=== PATIENT | male | born 1945 | race Caucasian/White ===

== ENCOUNTER 2016-08-09 08:32 | Emergency (ER) | payer OTHER ==
[2016-08-09 08:46] VITALS: RESP 18; TEMP 96.6
[2016-08-09] MEDS ORDERED: NORMAL SALINE 10 ML SYRINGE FLUSH IVP PRN (08:46)
[2016-08-09 09:09] LABS: BASOPHILS # (AUTO) 0.04 10*3/UL; BASOPHILS % (AUTO) 0.6 % (0-1); EOSINOPHILS % (AUTO) 1.5 % (0-8); HEMATOCRIT 44.9 % (42.0-52.0); HEMOGLOBIN 14.9 g/dL (14.0-18.0); IMM GRAN % (AUTO) 0.2 % (0-5); IMM GRAN# (AUTO) 0.01 10*3/UL; LYMPHOCYTES # (AUTO) 1.79 10*3/uL; LYMPHOCYTES % (AUTO) 27.2 % (10-50); MEAN CORPUSCULAR HEMOGLOBIN 29.4 PG (27-31); MEAN CORPUSCULAR HGB CONC 33.2 g/dL (33-37); MEAN PLATELET VOLUME 10.2 FL (7.4-12.2); MONOCYTES # (AUTO) 0.58 10*3/UL (0.3-0.8); MONOCYTES % (AUTO) 8.8 % (5-15); NEUTROPHILS # (AUTO) 4.05 10*3/UL; NEUTROPHILS % (AUTO) 61.7 % (50-80); RDW COEFFICIENT OF VARIATION 14.3 % (11.5-14.5); RED BLOOD COUNT 5.07 10^6/uL (4.70-6.10); WHITE BLOOD COUNT 6.57 10^3/uL (4.8-10.8)
[2016-08-09 09:10] LABS: PLATELET MORPHOLOGY COMMENT NORMAL MORPHOLOGY (NORM)
[2016-08-09 09:20] LABS: PROTHROMBIN TIME 10.1 secs (9.7-11.4)
[2016-08-09 09:21] LABS: BILIRUBIN,TOTAL 0.6 mg/dL (0.3-1.2); BUN/CREATININE RATIO 21.81 (6-20); CALCIUM 9.3 mg/dL (8.7-10.7); CREATININE 1.1 mg/dL (0.70-1.50); POTASSIUM 4.3 meq/L (3.8-5.2); TOTAL PROTEIN 7.1 g/dL (6.1-8.0)
--- NOTE | 2016-08-09 09:29 | PDOC ---
GI Bleed/Rectal Complaint HPI - General Chief Complaint: GI Bleed / Rectal Pain Stated Complaint: GI BLEEDING THIS AM Date Seen by Provider: 08/09/16 Time Seen by Provider: 09:00 Source: POSITIVE: Patient Exam Limitations: POSITIVE: No limitations Nurse's Notes Reviewed & Considered: Yes - History of Present Illness Initial Comments: The patient is a 71-year-old male who presents to the emergency department with blood in his stool this morning. He states that intermittently in the past he has had a small amount of bright red blood in the stool or on the tissue when he wipes. This morning he states that there was a significant amount of blood in the toilet and on the stool when he had a bowel movement. He denies any associated abdominal pain, rectal pain, fevers or chills, lightheadedness or any other associated complaints. He does take one baby aspirin daily however denies any use of any other blood thinners. He is not on any prescription medications. He has not had any previous abdominal surgeries. He has not had any previous colonoscopy. He has been told in the past that he has some hemorrhoids. He states that his stool varies from hard to loose depending on his diet and activity etc. the patient was evaluated briefly by Dr. Lauren on the patient's arrival and he had ordered a CBC CMP and coag studies. - Patient Home Medications Home Medications: Home Medications Aspirin [Lo-Dose Aspirin Ec] 81 mg PO DAILY tab 11/20/13 Fluorouracil 0.5 gm TP BID #1 tube 05/19/14 - Patient Allergies Allergies/Adverse Reactions: Allergies Allergy/AdvReac Type Severity Reaction Status Date / Time No Known Allergies Allergy Verified 08/09/16 08:39 Past Medical History - heen HEENT History: Denies History Cardiovascular History: Denies History Respiratory History: Denies History Gastrointestinal History: Other (please comment) Additional Gastrointestinal History: gastric ulcer Genitourinary History: Kidney Stones Endocrine History: Denies History Musculoskeletal History: Denies History Neurological History: Denies History Blood Disorders: Denies History Psychiatric History: Denies History Male Reproductive History: Other (please comment) Additional Male Reproductive History: vasectomy Cancer History: Denies History In Past Year Been Physically Harmed or Verbally Threatened: No History of MDRO: No Tobacco Use: Never Smoker Alcohol Use: None Substance Use Type: None Previous Surgical History: Yes Type / Date of Surgery: vasectomy Significant Family History: No pertinent family hx Past Medical History Reviewed: Reviewed - No Changes ROS - Limitations ROS Limitations: No Limitations Constitution: DENIES: Chills, Fever Cardiovascular: REPORTS: Denies Cardiac Symptoms Respiratory: REPORTS: Denies Resp Symptoms Neurological: REPORTS: Denies Neuro Symptoms GI Bleed / Rectal Complaint PE - General Appearance General Appearance: POSITIVE: Alert, Cooperative, No Acute Distress - HEENT HEENT: POSITIVE: Head Inspection Nml - Respiratory Respiratory: POSITIVE: No Respiratory Distress, Breath Sounds Normal - Cardiovascular Cardiovascular: POSITIVE: Regular Rate and Rhythm, Heart Sounds Normal Peripheral Pulses: Dorsalis-pedis (R): 2+, Dorsalis-pedis (L): 2+ - Abdomen Abdomen: Soft: (All Quadrants), Denies Tenderness: (All Quadrants), No Guarding : (All Quadrants), No Rebound: (All Quadrants), No Palpabale Mass: (All Quadrants), No Distention: (All Quadrants) - Genital / Rectal Rectal: POSITIVE: Non-Tender, Heme Positive Stool, Other (He does have evidence of external hemorrhoids on exam, no obvious source of bleeding although some of the hemorrhoids extend internally). NEGATIVE: Bloody Stool - Skin Skin: POSITIVE: Color Normal, No Rash - Extremities Extremity: Normal ROM: (All Extremities), Normal Inspection: (All Extremities) GI Bleed / Rectal Progress - Results Reviewed by me Lab Results Reviewed: Yes Lab Results:: Laboratory Results 08/09/16 Range/Units 09:00 WBC 6.57 (4.8-10.8) 10^3/uL RBC 5.07 (4.70-6.10) 10^6/uL Hgb 14.9 (14.0-18.0) g/dL Hct 44.9 (42.0-52.0) % MCV 88.6 (80-90) FL MCH 29.4 (27-31) PG MCHC 33.2 (33-37) g/dL RDW Std Deviation 44.9 (39-50) fL RDW Coeff of Angelia 14.3 (11.5-14.5) % Plt Count 189 (140-350) 10*3/uL MPV 10.2 (7.4-12.2) FL Immature Gran % (Auto) 0.2 (0-5) % Neut % (Auto) 61.7 (50-80) % Lymph % (Auto) 27.2 (10-50) % [place] % (Auto) 8.8 (5-15) % Eos % (Auto) 1.5 (0-8) % Baso % (Auto) 0.6 (0-1) % Immature Gran # (Auto) 0.01 10*3/UL Neut # (Auto) 4.05 10*3/UL Lymph # (Auto) 1.79 10*3/uL [place] # (Auto) 0.58 (0.3-0.8) 10*3/UL Eos # (Auto) 0.10 10*3/UL Baso # (Auto) 0.04 10*3/UL WBC Morphology Comment Normal morphology (NORM) Plt Morphology Comment Normal morphology (NORM) RBC Morph Comment Normal morphology (NORM) PT 10.1 (9.7-11.4) secs INR 0.98 (0.00-5.90) N/A APTT Pending Sodium 141 (135-145) meq/L Potassium 4.3 (3.8-5.2) meq/L Chloride 106 (98-112) meq/L Carbon Dioxide 24 (23-33) meq/L Anion Gap 11 (5-20) BUN 24 H (7-22) mg/dL Creatinine 1.1 (0.70-1.50) mg/dL Estimated GFR (>60 ml/min/1.73m(2)) BUN/Creatinine Ratio 21.81 H (6-20) Glucose 131 H (78-110) mg/dL Calculated Osmolality 297.0 H (267-292) mOsm/kg Calcium 9.3 (8.7-10.7) mg/dL Total Bilirubin 0.6 (0.3-1.2) mg/dL AST 26 (21-57) IU/L ALT 37 (21-72) IU/L Alkaline Phosphatase 77 (38-126) IU/L Total Protein 7.1 (6.1-8.0) g/dL Albumin 4.5 (3.5-4.8) g/dL Globulin 2.6 (2.50-4.10) g/dL Albumin/Globulin Ratio 1.70 (1.3-2.0) mg/g - Patient's Progress MDM / ED Course: The patient had no evidence of active bleeding here in the emergency department. His rectal exam does reveal presence of hemorrhoids. Given his history and complaint of bright red blood in the stool it seems most likely that he is having bleeding from an internal hemorrhoid. His blood work is all essentially normal with a normal hemoglobin, normal platelets and coags, normal white count. At this point he is considered stable for continued evaluation as an outpatient. He was advised that he should follow-up with either general surgery or gastroenterology to discuss colonoscopy for definitive evaluation, especially since he has never had any screening colonoscopy. He has an appointment with his primary care provider next week which he was going to keep an he sedated he would discuss this with her. I did recommend he return to the emergency room if he develops increased bleeding, abdominal pain, fever, lightheadedness, any worsening or change in symptoms. - Consult Counseled: POSITIVE: Patient, Family, RE: Lab Results, RE: DX, RE: Need for F/U Patient Care Time - Estimated PCT Patient Care Time (In Minutes): 25 Vital Signs - Recent Vital Signs Vital Signs: Vital Signs (Last 8 hours) Temp Pulse Resp BP Pulse Ox 08/09/16 08:41 96.6 F L 88 18 160/114 95 - VS Reviewed Vital Signs Reviewed: Yes Discharge Clinical Impression: Bleeding hemorrhoid, Rectal bleeding Condition: Stable Patient Instructions Given at Discharge: Hemorrhoids (ED) Additional Instructions: The cause of the bright red blood on the stool and on the tissue paper is most likely a bleeding hemorrhoid. Your blood work is all essentially normal and there is no evidence of anemia or infection. I would recommend follow-up either with general surgery or gastroenterology to discuss colonoscopy for further definitive evaluation. You can keep your appointment with your primary care provider next week to discuss referral. Recommend regular use of fiber to keep the stool soft. Return to the emergency room if significant increase in bleeding, abdominal pain or fever, lightheadedness, any worsening or change in symptoms. Follow Up With: JOSE TURNER [Primary Care Provider] -
== END 2016-08-09 09:42 | disposition home or self-care (01) ==
LOC: ER 08:32
DX: K64.8 Other hemorrhoids (principal); K62.5 Hemorrhage of anus and rectum
CPT/HCPCS: 80053; 82272; 85025; 85610; 85730; 99283

== ENCOUNTER → 2016-08-24 | Outpatient (CLI) | payer OTHER | LOC: MMPC 11:11 | PROVIDERS: ATTEND Nurse Practitioner Family | DX: K92.1 Melena (principal); R03.0 Elevated blood-pressure reading, without diagnosis of hypertension | CPT/HCPCS: G0439; G0463 ==

== ENCOUNTER → 2016-09-13 | Outpatient (CLI) | payer OTHER | LOC: MMPC 09:00 | PROVIDERS: ATTEND Nurse Practitioner Family | DX: R03.0 Elevated blood-pressure reading, without diagnosis of hypertension (principal) | CPT/HCPCS: 99213 ==

== ENCOUNTER → 2016-09-15 | Outpatient (CLI) | payer OTHER | LOC: MMPC 11:11 | PROVIDERS: ATTEND Surgery | DX: K62.5 Hemorrhage of anus and rectum (principal) | CPT/HCPCS: 99202; G0463 ==

== ENCOUNTER 2016-10-10 07:15 | Day surgery (SDC) | payer OTHER ==
[~2016-10-10 07:15] MED LIST: LIDOCAINE W/ SODIUM BICARB 0.5 ML SYR ONE; Lactated Ringers 1,000 ML PRIMARY IV ONE
[2016-10-10 07:36] VITALS: RESP 18
--- NOTE | 2016-10-10 08:50 | GEN.OPNOTE ---
Colonoscopy Procedure Note Surgery Date: 10/10/16 Preoperative Diagnosis: Bright red blood per rectum. Screening colonoscopy. Postoperative Diagnosis: Same. Near obstructing lesion at 40 cm from the anal verge. Polyp at 22 cm. Procedure: Incomplete colonoscopy with multiple biopsies at 40 cm and destruction of colon polyp at 22 cm. Surgeon: Adrian Matos MD Anesthesia Provider: Jessie Mejía CRNA Anesthesia Type: MAC Indications: Patient has never had a screening colonoscopy. He had episode of bright red blood per rectum. He was seen in the emergency room. He is referred for colonoscopy. Findings: Prep : [Very good] Cecum : [Not visualized] Ascending : [Not visualized] Transverse : [Not visualized] Sigmoid : [Near obstructing lesion at 40 cm from the anal verge. Could not advance the scope past the lesion. Multiple biopsies taken. Polyp at 22 cm biopsied and destroyed.] Rectum : [Normal.] Digital Rectal Exam : [Normal with moderate hemorrhoids. Prostate of normal size and consistency.] A lubricated flexible colonoscope was inserted and passed to 40 cm where we ran into a near obstructing lesion. I could only see the edge of the lesion. There was a small hole which I was unable to advance the scope through. Multiple biopsies were taken. Hemostasis was assured. After multiple attempts and being unable to pass the scope we began the withdrawal. There was a small polyp at 22 cm which was biopsied and destroyed. The remainder of the exam was unremarkable and the scope was withdrawn completing the procedure. Patient tolerated the procedure well without complication. He was taken to outpatient surgery in stable condition. I will order a CT scan of his abdomen and pelvis as well as comprehensive lab work. We'll see the patient in the next day or 2 and discuss the biopsy results.
[2016-10-10 09:15] LABS: BASOPHILS # (AUTO) 0.04 10*3/UL; BASOPHILS % (AUTO) 0.8 % (0-1); EOSINOPHILS # (AUTO) 0.08 10*3/UL; EOSINOPHILS % (AUTO) 1.6 % (0-8); HEMATOCRIT 42.4 % (42.0-52.0); HEMOGLOBIN 13.8 g/dL (14.0-18.0); LYMPHOCYTES # (AUTO) 1.23 10*3/uL; MEAN CORPUSCULAR HEMOGLOBIN 28.4 PG (27-31); MEAN CORPUSCULAR HGB CONC 32.5 g/dL (33-37); MEAN PLATELET VOLUME 10.4 FL (7.4-12.2); MONOCYTES # (AUTO) 0.54 10*3/UL (0.3-0.8); MONOCYTES % (AUTO) 10.9 % (5-15); NEUTROPHILS # (AUTO) 3.06 10*3/UL; NEUTROPHILS % (AUTO) 61.9 % (50-80); RED BLOOD COUNT 4.86 10^6/uL (4.70-6.10)
[2016-10-10 09:20] LABS: PLATELET MORPHOLOGY COMMENT NORMAL MORPHOLOGY (NORM); RBC MORPHOLOGY COMMENT NORMAL MORPHOLOGY (NORM); WBC MORPHOLOGY COMMENT NORMAL MORPHOLOGY (NORM)
[2016-10-10 09:29] LABS: CALCIUM 8.9 mg/dL (8.7-10.7)
--- NOTE | 2016-10-10 12:09 | DI ---
CT ABDOMEN SCAN WITH IV CONTRAST, 10/10/2016 8:53 AM : Clinical History: Sigmoid colon mass that prevented completion of the colonoscopy study. Previous Exam: None at this facility. Scans are performed from the lower lung bases through the liver and kidneys with IV contrast. 95 ml o f Isovue 300 was injected IV. Water was used for rectal contrast. The lung bases are clear. The liver has multiple low-density lesions in the right and left lobes. The se range in size between 3-5 mm up to 25 mm in size. The larger lesions in the left and right lobes d o not have water density, but there is one near the tiffanie hepatis that is of water density. The small er lesions are indeterminate as to the density value. These may represent metastatic disease. Liver u ltrasound is recommended. The gallbladder is grossly normal. There is no abnormality of the spleen, p ancreas, and adrenal glands. Both kidneys are normal in size, shape, position and contour. There is n o hydronephrosis or hydroureter. No renal or ureteral calculi are present. There are no abnormal retr ocrural or periaortic nodes. No ascites is present. READIN. The liver is normal in size but has multiple low density lesions and some of the larger lesions a re suspicious for representing metastatic disease. Liver ultrasound is recommended to see a these are solid or cystic in origin. 2. The remainder of the exam is normal. CT PELVIS SCAN WITH IV CONTRAST, 10/10/2016 8:53 AM: Clinical History: See above. Previous Exam: None at this facility. Scans are performed from just superior to the umbilicus to the symphysis pubis with IV contrast. This is the same bolus of contrast used for the CT scans of the abdomen. Scans through the lower abdomen and pelvis show no intra-abdominal masses or abnormal fluid collectio ns. There is no adenopathy. The appendix is normal. The small bowel, terminal ileum, and ileocecal va lve are normal. The ascending colon is completely decompressed and the transverse colon is primarily filled with air. The descending colon is filled with a combination of air and water. There is a redun dant sigmoid colon and near the junction between the descending colon and the proximal sigmoid colon in the left lower quadrant is an enhancing mucosal lesion consistent with the clinical diagnosis of a sigmoid colon mass. This extends for an estimated length of 3-4 cm. There is no periserosal inflamma tory/infiltrative change and there is no adenopathy. There is a small umbilical hernia through which only mesenteric fat has herniated. READIN. There is an enhancing mass in the colon at the junction between the descending and sigmoid colon that is causing a stenosis. The length of the mass is estimated to be between 3-4 cm and there is no periserosal inflammatory/infiltrative change, and there is no adenopathy. 2. The remainder of the exam is normal.
[2016-10-10 14:14] VITALS: TEMP 96.8
== END 2016-10-10 12:55 | disposition home or self-care (01) ==
LOC: SDSC 07:15
PROVIDERS: ATTEND Surgery
DX: K62.5 Hemorrhage of anus and rectum (principal); Z12.11 Encounter for screening for malignant neoplasm of colon; K63.9 Disease of intestine, unspecified; K63.5 Polyp of colon
CPT/HCPCS: 36415; 45380; 45388; 74177; 80053; 82378; 85025; J2704; J7120

== ENCOUNTER → 2016-10-13 | Outpatient (CLI) | payer OTHER | LOC: MMPC 11:11 | PROVIDERS: ATTEND Surgery | DX: C18.7 Malignant neoplasm of sigmoid colon (principal); K76.9 Liver disease, unspecified | CPT/HCPCS: 99213; G0463 ==

== ENCOUNTER 2016-10-19 06:21 | Inpatient (IN) | payer OTHER ==
[~2016-10-19 06:21] MED LIST changes: +ERTAPENEM 1 GM VIAL ONE; +Sodium Chloride 0.9% 100 ML IV ONE
[2016-10-19] MEDS ORDERED: BUPIVACAINE 0.5% W/ EPI - 10 ML VIAL ONE (07:05)
[2016-10-19] MEDS ORDERED: NORMAL SALINE 10 ML SYRINGE FLUSH IVP PRN (07:12)
[2016-10-19] MEDS ORDERED: ONDANSETRON 4 MG/2 ML VIAL IVP PRN ×2 (07:12→11:53)
[2016-10-19] MEDS ORDERED: Ondansetron ODT Tab 8 MG TAB PO PRN (07:12)
[2016-10-19] MEDS ORDERED: fentaNYL Inj 100 MCG/2 ML VIAL IVP PRN (07:12)
[2016-10-19] MEDS ORDERED: ATROPINE SULFATE 0.4 MG/1 ML VIAL IVP PRN (07:12)
[2016-10-19] MEDS ORDERED: Lactated Ringers 1,000 ML PRIMARY IV SCH (07:15)
[2016-10-19] MEDS ORDERED: MIDAZOLAM 5 MG/1 ML ONE (07:34)
[2016-10-19] MEDS ORDERED: fentaNYL Inj 250 MCG/5 ML VIAL ONE (07:34)
[2016-10-19] MEDS ORDERED: KETAMINE 100 MG/1 ML - 5 ML ONE (07:35)
[2016-10-19] MEDS ORDERED: VECURONIUM BROMIDE 10 MG VIAL ONE ×2 (07:35→08:56)
[2016-10-19] MEDS ORDERED: Sodium Chloride 0.9% vial 10 ML ONE (07:39)
[2016-10-19] MEDS ORDERED: Sodium Chloride 0.9% 100 ML IV ONE (08:01)
[2016-10-19] MEDS ORDERED: ePHEDrine Inj 50 MG/ML AMP ONE (08:18)
[2016-10-19] MEDS ORDERED: GLYCOPYRROLATE 0.2 MG/1 ML VIAL ONE ×2 (08:35→09:14)
[2016-10-19] MEDS ORDERED: HYDROmorphone 2 MG/1 ML ONE (09:11)
[2016-10-19] MEDS ORDERED: NEOSTIGMINE 1 MG/1 ML - 10 ML ONE (09:14)
[2016-10-19] MEDS ORDERED: Sodium Chloride 0.9% vial 30 ML ONE (09:44)
[2016-10-19] MEDS ORDERED: BUPivacaine Liposome/PF (Exparel) Inj 20ml vial INFIL ONE (09:45)
[2016-10-19] MEDS ORDERED: Lactated Ringers 3,000 ML PRIMARY IV ONE (10:18)
--- NOTE | 2016-10-19 10:40 | DI ---
XR ABDOMEN (KUB) FLAT JayeshVIEW,10/19/2016 9:52 AM: Clinical History: Missing surgical instruments. Previous Exam: CT abdomen pelvis performed October 10, 2016 Findings: Multiple views of the abdomen and pelvis are obtained demonstrating multiple surgical clips overlying the abdomen. There is a 3.8 cm hyperdense mass with similar density to the skin sol which overlies the upper p zenobia. A few overlying EKG leads are seen. There is a nasogastric tube with the tip near the gastroesophagea l junction. An endotracheal tube is in good position. Impression: 3.8 cm round density overlying the left pelvis. On these images, cannot rule out the possibility of a n intrapelvic foreign body. This could also be an overlying density. Correlate clinically.
--- NOTE | 2016-10-19 10:50 | GEN.OPNOTE ---
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 Postoperative Diagnosis: Same. Procedure: Partial colectomy with primary anastomosis. Wedge biopsy of liver lesion. Surgeon: Adrian Matos MD Family Law Attorney: Gian Gomez MD Anesthesia Provider: Jessie Mejía CRNA Anesthesia Type: General Estimated Blood Loss (mL): 125 Fluids: 200 mL of crystalloid. 1 g of IV Invanz at the start of the procedure. Pathology: Specimens to pathology included the resected sigmoid colon as well as a liver biopsy. Also a small polyp was excised at the proximal transection margin and sent for analysis. Indications: Near obstructing biopsy proven colon cancer with liver abnormalities on CT scan. Findings: Near obstructing sigmoid colon cancer. Small polyp just proximal at the anastomosis. Multiple white plaque-like lesions on the liver. Wedge biopsy taken. No other intra-abdominal pathology identified. Complications: None. Operative Summary: The patient was taken to the operating suite and placed on the operating table in the supine position. He was then placed in low universal stirrups with his arms out on arm boards. Following induction of adequate general anesthetic the abdomen was prepped and draped in a sterile fashion. A surgical timeout was performed. A midline incision was made and carried down through the subcutaneous tissue and fascia with electrocautery. The peritoneum was elevated and incised. An Jordan retractor was placed. I first looked at the liver. There were several nodules palpable in the right lobe and the left lobe. There were several simple cysts as well.. The easiest nodule to get to was a superficial nodule in the left lobe. A 15 blade on a long handle was used to perform a wedge resection of this lesion. There was retrieved and sent for pathologic analysis. The site was cauterized until hemostasis was assured. Appropriate irrigation and suctioning were performed. A lap was placed over the resection site and removed at the end of the procedure. Hemostasis was assured. Abdominal exam revealed no other gross findings. There is a near obstructing lesion in the sigmoid colon. Attention was turned to resection of this lesion. As the patient had liver metastases wide or extensive resection was not indicated. I chose a proximal transection site about 6 inches proximal to the obstructing tumor. The colon was cleared of the paracolonic fat. A pursestring clamp was placed across the bowel proximally. A 3-0 Maxon suture on a Rahat needle was used to perform the pursestring. A [place] clamp was placed distally and the bowel was divided. 6 inches distal to the tumor I cleared the fat off of the bowel. A pursestring clamp was placed on the bowel. A 3-0 Maxon pursestring suture was placed. A clamp was placed on the proximal or tumor side of the bowel and the bowel was divided. The mesocolon was taken down by serially clamping dividing and ligating the vessels with 0 Vicryl sutures. The specimen was removed from the surgical field. The mesentery was reapproximated with running 2-0 Vicryl. We then removed the proximal pursestring clamp and a polyp was seen in the mucosa. This was excised with electrocautery. The proximal and distal bowel was sized to size 31 mm. I chose a Valtrac anastomotic device. This was placed into the distal bowel initially. The pursestring suture was tied. It was then placed into the proximal bowel. The pursestring suture was tied. The device was inspected circumferentially. The bowel was all within the limits of the anastomotic device. The anastomotic device was closed until a snap was felt. This resulted in an excellent anastomosis with circumferential serosal to serosal proximal to distal bowel approximation. A bowel clamp was placed proximal to the anastomotic device. A colonoscope was inserted into the rectum and passed up to the anastomotic device. The bowel was insufflated with air. Saline was placed in the peritoneal cavity and there was no air leak. The air was aspirated and the colonoscope was removed. All personnel changed gowns and gloves. Extensive irrigation was performed. Hemostasis was assured. The bowel was returned to a relative anatomic position and covered with omentum. The midline fascia was closed with running #1 Vicryl. The wound was irrigated and then infiltrated circumferentially with Exparel. The skin was closed with surgical sol followed by a sterile dressing. The count was off by one forcep. Multiple abdominal x-rays were taken. There were no retained foreign bodies in the peritoneal cavity with the exception of the anastomotic device. The patient tolerated the entire procedure well without complication. He was taken to the recovery room in stable condition. All counts were correct except as noted above.
[2016-10-19] MEDS: HYDROmorphone 2 MG/1 ML IVP PRN ×3 (11:05→11:28)
[2016-10-19] MEDS ORDERED: NALOXONE 0.4 MG/1 ML VIAL IVP PRN (11:53)
[2016-10-19] MEDS: D5-LR + 20mEq KCL 1,000 ML PRIMARY IV SCH ×2 (12:36→21:32)
--- NOTE | 2016-10-19 14:42 | PDOC(PROG) ---
Date and Time of Service: 10/19/2016 1 PM Interval History: Patient is status post hemicolectomy with primary anastomosis for sigmoid colon cancer. He also had a liver biopsy. He is awake and alert and conversant. He is comfortable. He has taken a few ice chips. He has not ambulated. He was afebrile and his vital signs are stable. I'm seeing him for postoperative check. Objective : Data - Vital Signs Vital Signs and I&O: Vital Signs - Last Taken Temperature 97.6 F 10/19/16 13:00 Pulse Rate 62 10/19/16 13:00 Respiratory Rate 16 10/19/16 13:00 Blood Pressure 118/65 10/19/16 13:00 Pulse Ox 95 10/19/16 13:00 Intake and Output (24hr x 4 totals) 10/17/16 10/18/16 10/19/16 10/20/16 05:59 05:59 05:59 05:59 Intake Total 3350 Output Total 425 Balance 2925 Objective : Exam - General General Appearance: No Acute Distress, Cooperative - Respiratory Respiratory Exam: Clear to Auscultation - Bilaterally, Breathing Non Labored - Cardiovascular Cardiovascular Exam: RRR, No Murmur - GI/Abdominal GI/Abdominal Exam: Soft Additional GI/Abdominal Exam Details: Incisional tenderness only. - Neurological Neurological Exam: Alert, Oriented x 3 - Psychiatric Psychiatric Exam: Normal Affect, Normal Mood Assessment and Plan - Patient Problems (1) Cancer of sigmoid colon Current Visit: Yes Status: Acute Priority: High Comment: Near obstructing sigmoid colon cancer. Probable liver metastases. Discovered on recent colonoscopy. (2) Status post partial resection of colon Current Visit: Yes Status: Acute Priority: High Diagnosis Date: 10/19/16 Comment: Status post partial colectomy with primary anastomosis. Stable postoperative.
[2016-10-19] MEDS: MORPHINE SULFATE/PF PCA 30 MG/30 ML IV PRN (19:59)
[2016-10-20] MEDS: D5-LR + 20mEq KCL 1,000 ML PRIMARY IV SCH ×3 (05:34→15:22)
[2016-10-20 05:41] LABS: BASOPHILS # (AUTO) 0.02 10*3/UL; BASOPHILS % (AUTO) 0.2 % (0-1); EOSINOPHILS # (AUTO) 0.02 10*3/UL; EOSINOPHILS % (AUTO) 0.2 % (0-8); HEMATOCRIT 41.8 % (42.0-52.0); HEMOGLOBIN 13.3 g/dL (14.0-18.0); LYMPHOCYTES # (AUTO) 1.35 10*3/uL; MEAN CORPUSCULAR HEMOGLOBIN 27.7 PG (27-31); MEAN CORPUSCULAR HGB CONC 31.8 g/dL (33-37); MEAN CORPUSCULAR VOLUME 86.9 FL (80-90); MEAN PLATELET VOLUME 10.5 FL (7.4-12.2); MONOCYTES # (AUTO) 0.87 10*3/UL (0.3-0.8); MONOCYTES % (AUTO) 9.4 % (5-15); NEUTROPHILS # (AUTO) 7.01 10*3/UL; NEUTROPHILS % (AUTO) 75.6 % (50-80); RED BLOOD COUNT 4.81 10^6/uL (4.70-6.10)
[2016-10-20 05:42] LABS: PLATELET MORPHOLOGY COMMENT NORMAL MORPHOLOGY (NORM); RBC MORPHOLOGY COMMENT NORMAL MORPHOLOGY (NORM); WBC MORPHOLOGY COMMENT NORMAL MORPHOLOGY (NORM)
[2016-10-20 05:53] LABS: CALCIUM 7.9 mg/dL (8.7-10.7); SERUM ALBUMIN 3.1 g/dL (3.5-4.8)
[2016-10-20] MEDS ORDERED: Ertapenem Inj 1 GM in Sodium Chloride 0.9% 100 ML IV SCH (08:00)
[2016-10-20] MEDS: MORPHINE SULFATE/PF PCA 30 MG/30 ML IV PRN (08:56)
[2016-10-20] MEDS: Pantoprazole Inj 40 MG in Normal Saline Flush 10 ML IVP SCH (09:07)
[2016-10-20] MEDS: ENOXAPARIN SODIUM 40 MG/0.4 ML SYRINGE SUBCUT SCH (11:08)
--- NOTE | 2016-10-20 11:38 | PDOC(PROG) ---
Subjective Post Op Day: 1 Pain Management: Peripheral CHEMICAL INSPECTOR Brewster Catheter: Yes Flatus: No Diet: NPO (Except ice chips.) Ambulating: Yes Date and Time of Service: 10/20/2016. Patient seen at 9:20 AM. Interval History: Comfortable. Using the CHEMICAL INSPECTOR sporadically. Hurts most when he coughs and moves. Has ambulated. Taking some ice chips. No flatus or bowel movement. No nausea. Overall doing very well. He is in good spirits. We discussed the operative findings this morning. Pathology is pending. Objective : Data - Labs CBC and BMP: 10/20/16 05:15 10/20/16 05:15 Labs - Last 24 Hours: Laboratory Results 10/20/16 Range/Units 05:15 WBC 9.28 (4.8-10.8) 10^3/uL RBC 4.81 (4.70-6.10) 10^6/uL Hgb 13.3 L (14.0-18.0) g/dL Hct 41.8 L (42.0-52.0) % MCV 86.9 (80-90) FL MCH 27.7 (27-31) PG MCHC 31.8 L (33-37) g/dL RDW Std Deviation 46.4 (39-50) fL RDW Coeff of Angelia 14.8 H (11.5-14.5) % Plt Count 168 (140-350) 10*3/uL MPV 10.5 (7.4-12.2) FL Immature Gran % (Auto) 0.1 (0-5) % Neut % (Auto) 75.6 (50-80) % Lymph % (Auto) 14.5 (10-50) % [place] % (Auto) 9.4 (5-15) % Eos % (Auto) 0.2 (0-8) % Baso % (Auto) 0.2 (0-1) % Immature Gran # (Auto) 0.01 10*3/UL Neut # (Auto) 7.01 10*3/UL Lymph # (Auto) 1.35 10*3/uL [place] # (Auto) 0.87 H (0.3-0.8) 10*3/UL Eos # (Auto) 0.02 10*3/UL Baso # (Auto) 0.02 10*3/UL WBC Morphology Comment Normal morphology (NORM) Plt Morphology Comment Normal morphology (NORM) RBC Morph Comment Normal morphology (NORM) Sodium 137 (135-145) meq/L Potassium 4.3 (3.8-5.2) meq/L Chloride 106 (98-112) meq/L Carbon Dioxide 25 (23-33) meq/L Anion Gap 6 (5-20) BUN 11 (7-22) mg/dL Creatinine 1.0 (0.70-1.50) mg/dL Estimated GFR (>60 ml/min/1.73m(2)) BUN/Creatinine Ratio 11.00 (6-20) Glucose 123 H (78-110) mg/dL Calculated Osmolality 283.0 (267-292) mOsm/kg Calcium 7.9 L (8.7-10.7) mg/dL Total Bilirubin 0.7 (0.3-1.2) mg/dL AST 26 (21-57) IU/L ALT 30 (21-72) IU/L Alkaline Phosphatase 66 (38-126) IU/L Total Protein 5.7 L (6.1-8.0) g/dL Albumin 3.1 L (3.5-4.8) g/dL Globulin 2.6 (2.50-4.10) g/dL Albumin/Globulin Ratio 1.10 L (1.3-2.0) mg/g - Vital Signs Vital Signs and I&O: Vital Signs - Last Taken Temperature 99.3 F 10/20/16 07:33 Pulse Rate 74 10/20/16 07:33 Respiratory Rate 18 10/20/16 09:00 Blood Pressure 136/82 10/20/16 07:33 Pulse Ox 92 10/20/16 11:00 Intake and Output (24hr x 4 totals) 10/18/16 10/19/16 10/20/16 10/21/16 05:59 05:59 05:59 05:59 Intake Total 5206 90 Output Total 1775 Balance 3431 90 Objective : Exam - General General Appearance: No Acute Distress, Cooperative - Respiratory Respiratory Exam: Clear to Auscultation - Bilaterally, Breathing Non Labored - Cardiovascular Cardiovascular Exam: RRR, No Murmur - GI/Abdominal GI/Abdominal Exam: Non Distended, Soft, Diminished Bowel Sounds Additional GI/Abdominal Exam Details: Some serosanguineous drainage on the lower dressing. Incisional tenderness on exam. Hypoactive bowel tones. Patient has a protuberant abdomen but is not distended. - Rectal Rectal Exam: Deferred - Neurological Neurological Exam: Alert, Oriented x 3 - Psychiatric Psychiatric Exam: Normal Affect, Normal Mood Assessment and Plan - Patient Problems (1) Cancer of sigmoid colon Current Visit: Yes Status: Acute Priority: High Comment: status post sigmoid colectomy and liver biopsy. Patient is stable. (2) Status post partial resection of colon Current Visit: Yes Status: Acute Priority: High Diagnosis Date: 10/19/16 Comment: Doing very well. Postoperative course is unremarkable. Patient needs to ambulate. We'll slowly start him on clear liquids. Plan Brewster out later today. We'll start Lovenox. Continue postoperative care. Discussed with the patient and the nursing staff.
[2016-10-21] MEDS: D5-LR + 20mEq KCL 1,000 ML PRIMARY IV SCH ×6 (00:34→13:46)
[2016-10-21 05:53] LABS: BASOPHILS # (AUTO) 0.02 10*3/UL; BASOPHILS % (AUTO) 0.2 % (0-1); EOSINOPHILS # (AUTO) 0.05 10*3/UL; EOSINOPHILS % (AUTO) 0.6 % (0-8); HEMATOCRIT 42.1 % (42.0-52.0); HEMOGLOBIN 13.4 g/dL (14.0-18.0); LYMPHOCYTES # (AUTO) 1.04 10*3/uL; MEAN CORPUSCULAR HEMOGLOBIN 28.1 PG (27-31); MEAN CORPUSCULAR HGB CONC 31.8 g/dL (33-37); MEAN CORPUSCULAR VOLUME 88.3 FL (80-90); MEAN PLATELET VOLUME 10.7 FL (7.4-12.2); MONOCYTES # (AUTO) 0.86 10*3/UL (0.3-0.8); MONOCYTES % (AUTO) 9.8 % (5-15); NEUTROPHILS # (AUTO) 6.78 10*3/UL; NEUTROPHILS % (AUTO) 77.3 % (50-80); RED BLOOD COUNT 4.77 10^6/uL (4.70-6.10)
[2016-10-21 05:58] LABS: PLATELET MORPHOLOGY COMMENT NORMAL MORPHOLOGY (NORM); RBC MORPHOLOGY COMMENT NORMAL MORPHOLOGY (NORM); WBC MORPHOLOGY COMMENT NORMAL MORPHOLOGY (NORM)
[2016-10-21 06:05] LABS: CALCIUM 8.4 mg/dL (8.7-10.7)
[2016-10-21] MEDS: Pantoprazole Inj 40 MG in Normal Saline Flush 10 ML IVP SCH (08:45)
[2016-10-21] MEDS: ENOXAPARIN SODIUM 40 MG/0.4 ML SYRINGE SUBCUT SCH (08:46)
--- NOTE | 2016-10-21 12:56 | PDOC(PROG) ---
Subjective Post Op Day: 2 Pain Management: Peripheral MANAGER OF ORGANIZATIONAL DEVELOPMENT Brewster Catheter: No Flatus: No Diet: Clear Ambulating: Yes Date and Time of Service: 10/21/2016 12:50 PM Interval History: Taking some ice chips. Doesn't really like any of the clear liquids. Has ambulated. He is voiding since the catheter has been removed. No flatus or bowel movement. Patient reports it only hurts when he starts to get up or coughs or sneezes. Objective : Data - Labs CBC and BMP: 10/21/16 05:16 10/21/16 05:16 Labs - Last 24 Hours: Laboratory Results 10/21/16 Range/Units 05:16 WBC 8.77 (4.8-10.8) 10^3/uL RBC 4.77 (4.70-6.10) 10^6/uL Hgb 13.4 L (14.0-18.0) g/dL Hct 42.1 (42.0-52.0) % MCV 88.3 (80-90) FL MCH 28.1 (27-31) PG MCHC 31.8 L (33-37) g/dL RDW Std Deviation 46.9 (39-50) fL RDW Coeff of Angelia 14.8 H (11.5-14.5) % Plt Count 149 (140-350) 10*3/uL MPV 10.7 (7.4-12.2) FL Immature Gran % (Auto) 0.2 (0-5) % Neut % (Auto) 77.3 (50-80) % Lymph % (Auto) 11.9 (10-50) % [place] % (Auto) 9.8 (5-15) % Eos % (Auto) 0.6 (0-8) % Baso % (Auto) 0.2 (0-1) % Immature Gran # (Auto) 0.02 10*3/UL Neut # (Auto) 6.78 10*3/UL Lymph # (Auto) 1.04 10*3/uL [place] # (Auto) 0.86 H (0.3-0.8) 10*3/UL Eos # (Auto) 0.05 10*3/UL Baso # (Auto) 0.02 10*3/UL WBC Morphology Comment Normal morphology (NORM) Plt Morphology Comment Normal morphology (NORM) RBC Morph Comment Normal morphology (NORM) Sodium 136 (135-145) meq/L Potassium 4.3 (3.8-5.2) meq/L Chloride 103 (98-112) meq/L Carbon Dioxide 26 (23-33) meq/L Anion Gap 7 (5-20) BUN 10 (7-22) mg/dL Creatinine 1.0 (0.70-1.50) mg/dL Estimated GFR (>60 ml/min/1.73m(2)) BUN/Creatinine Ratio 10.00 (6-20) Glucose 121 H (78-110) mg/dL Calculated Osmolality 281.0 (267-292) mOsm/kg Calcium 8.4 L (8.7-10.7) mg/dL - Vital Signs Vital Signs and I&O: Vital Signs - Last Taken Temperature 99.5 F 10/21/16 08:21 Pulse Rate 78 10/21/16 08:21 Respiratory Rate 20 10/21/16 11:00 Blood Pressure 148/91 10/21/16 08:21 Pulse Ox 92 10/21/16 11:00 Intake and Output (24hr x 4 totals) 10/19/16 10/20/16 10/21/16 10/22/16 05:59 05:59 05:59 05:59 Intake Total 5206 3109 240 Output Total 1775 1375 300 Balance 3431 1734 -60 Objective : Exam - General General Appearance: No Acute Distress, Cooperative - Respiratory Respiratory Exam: Clear to Auscultation - Bilaterally, Breathing Non Labored - Cardiovascular Cardiovascular Exam: RRR, No Murmur - GI/Abdominal GI/Abdominal Exam: Non Distended, Soft, Diminished Bowel Sounds Additional GI/Abdominal Exam Details: Dressing is clean. No sign of infection. Some dried blood on the dressing. Diffuse mild abdominal tenderness. No peritoneal signs. Assessment and Plan - Patient Problems (1) Cancer of sigmoid colon Current Visit: Yes Status: Acute Priority: High Comment: Status post sigmoid colectomy. (2) Status post partial resection of colon Current Visit: Yes Status: Acute Priority: High Diagnosis Date: 10/19/16 Comment: Stable. Continue postoperative care. Await return of GI function. The pathologist was called. The tumor is full thickness. There are 4 positive lymph nodes. The liver biopsies consistent with metastatic adenocarcinoma. Patient and his are aware.
--- NOTE | 2016-10-21 13:08 | CRNA.PROGR ---
Anesthesia Note Anesthesia Progress Note: Up in a chair. O2 by nasal cannula, still connected to MSO4 COST ACCOUNTING CLERK. Urinary catheter out yesterday. Using incentive spirometry well; 1500 ml times 3. Has been walking well,meaning around the nurses station several times. No flatus passed yet. Encouraged more ambulation. Laboratory Results 10/21/16 Range/Units 05:16 WBC 8.77 (4.8-10.8) 10^3/uL RBC 4.77 (4.70-6.10) 10^6/uL Hgb 13.4 L (14.0-18.0) g/dL Hct 42.1 (42.0-52.0) % MCV 88.3 (80-90) FL MCH 28.1 (27-31) PG MCHC 31.8 L (33-37) g/dL RDW Std Deviation 46.9 (39-50) fL RDW Coeff of Angelia 14.8 H (11.5-14.5) % Plt Count 149 (140-350) 10*3/uL MPV 10.7 (7.4-12.2) FL Immature Gran % (Auto) 0.2 (0-5) % Neut % (Auto) 77.3 (50-80) % Lymph % (Auto) 11.9 (10-50) % [place] % (Auto) 9.8 (5-15) % Eos % (Auto) 0.6 (0-8) % Baso % (Auto) 0.2 (0-1) % Immature Gran # (Auto) 0.02 10*3/UL Neut # (Auto) 6.78 10*3/UL Lymph # (Auto) 1.04 10*3/uL [place] # (Auto) 0.86 H (0.3-0.8) 10*3/UL Eos # (Auto) 0.05 10*3/UL Baso # (Auto) 0.02 10*3/UL WBC Morphology Comment Normal morphology (NORM) Plt Morphology Comment Normal morphology (NORM) RBC Morph Comment Normal morphology (NORM) Sodium 136 (135-145) meq/L Potassium 4.3 (3.8-5.2) meq/L Chloride 103 (98-112) meq/L Carbon Dioxide 26 (23-33) meq/L Anion Gap 7 (5-20) BUN 10 (7-22) mg/dL Creatinine 1.0 (0.70-1.50) mg/dL Estimated GFR (>60 ml/min/1.73m(2)) BUN/Creatinine Ratio 10.00 (6-20) Glucose 121 H (78-110) mg/dL Calculated Osmolality 281.0 (267-292) mOsm/kg Calcium 8.4 L (8.7-10.7) mg/dL Jessie Mejía MS,ASSOCIATE MEDIA PLANNER
[2016-10-21] MEDS: MORPHINE SULFATE/PF PCA 30 MG/30 ML IV PRN (15:43)
[2016-10-22] MEDS: HYDROcodone-APAP 7.5 MG-325 MG TABLET PO PRN ×3 (00:02→20:08)
[2016-10-22] MEDS: Pantoprazole Inj 40 MG in Normal Saline Flush 10 ML IVP SCH (08:35)
[2016-10-22] MEDS: ENOXAPARIN SODIUM 40 MG/0.4 ML SYRINGE SUBCUT SCH (08:36)
[2016-10-22] MEDS: D5-LR + 20mEq KCL 1,000 ML PRIMARY IV SCH (10:00)
--- NOTE | 2016-10-22 14:11 | PDOC(PROG) ---
Subjective Post Op Day: 3 Brewster Catheter: No Flatus: No Diet: Clear Ambulating: Yes Date and Time of Service: 10/22/2016, 2 PM Interval History: No nausea. Tolerating clear liquids. No flatus or bowel movement. Thinks he would like to try more to eat. Patient is ambulating. He is voiding with the Brewster catheter out. His pain is well controlled. He has no specific complaints. Objective : Data - Labs CBC and BMP: 10/21/16 05:16 10/21/16 05:16 - Vital Signs Vital Signs and I&O: Vital Signs - Last Taken Temperature 97.4 F 10/22/16 12:39 Pulse Rate 56 L 10/22/16 12:39 Respiratory Rate 18 10/22/16 13:00 Blood Pressure 118/83 10/22/16 12:39 Pulse Ox 95 10/22/16 12:39 Intake and Output (24hr x 4 totals) 10/20/16 10/21/16 10/22/16 10/23/16 05:59 05:59 05:59 05:59 Intake Total 5206 3109 2929 480 Output Total 1775 1375 900 100 Balance 3431 1734 2029 380 Objective : Exam - General General Appearance: No Acute Distress, Cooperative - Respiratory Respiratory Exam: Clear to Auscultation - Bilaterally, Breathing Non Labored - Cardiovascular Cardiovascular Exam: RRR, No Murmur - GI/Abdominal GI/Abdominal Exam: Non Distended, Soft, Diminished Bowel Sounds Additional GI/Abdominal Exam Details: Incision looks good. Mild erythema. Small amount of dried blood on the lower portion of the incision. No other drainage. No fluctuance. Mild incisional tenderness as expected. Otherwise the abdominal examination is benign. - Neurological Neurological Exam: Oriented x 3 - Psychiatric Psychiatric Exam: Normal Affect, Normal Mood Assessment and Plan - Patient Problems (1) Cancer of sigmoid colon Current Visit: Yes Status: Acute Priority: High Comment: Status post colectomy. (2) Status post partial resection of colon Current Visit: Yes Status: Acute Priority: High Diagnosis Date: 10/19/16 Comment: stable postoperatively. Doing well. Advance diet. Change to oral medications. Discontinue BURLAP ROLL COVERER and IV fluids. We'll need to keep a close eye on the wound. Certainly I would not explore it today but if the erythema increases may need to have a few of the sol removed. Continue postoperative care.
[2016-10-23] MEDS: HYDROcodone-APAP 7.5 MG-325 MG TABLET PO PRN (05:03)
[2016-10-23 06:08] LABS: BASOPHILS # (AUTO) 0.02 10*3/UL; BASOPHILS % (AUTO) 0.3 % (0-1); EOSINOPHILS # (AUTO) 0.13 10*3/UL; EOSINOPHILS % (AUTO) 2.3 % (0-8); HEMOGLOBIN 13.1 g/dL (14.0-18.0); LYMPHOCYTES # (AUTO) 0.95 10*3/uL; MEAN CORPUSCULAR HEMOGLOBIN 27.5 PG (27-31); MEAN CORPUSCULAR HGB CONC 31.2 g/dL (33-37); MEAN CORPUSCULAR VOLUME 88.1 FL (80-90); MEAN PLATELET VOLUME 10.4 FL (7.4-12.2); MONOCYTES # (AUTO) 0.54 10*3/UL (0.3-0.8); MONOCYTES % (AUTO) 9.4 % (5-15); NEUTROPHILS # (AUTO) 4.12 10*3/UL; NEUTROPHILS % (AUTO) 71.3 % (50-80); RED BLOOD COUNT 4.77 10^6/uL (4.70-6.10)
[2016-10-23 06:15] LABS: PLATELET MORPHOLOGY COMMENT NORMAL MORPHOLOGY (NORM); RBC MORPHOLOGY COMMENT NORMAL MORPHOLOGY (NORM); WBC MORPHOLOGY COMMENT NORMAL MORPHOLOGY (NORM)
[2016-10-23 06:27] LABS: BUN/CREATININE RATIO 16.66 (6-20); CALCIUM 8.5 mg/dL (8.7-10.7); SERUM ALBUMIN 3.3 g/dL (3.5-4.8)
[2016-10-23] MEDS: PANTOPRAZOLE 40 MG TABLET PO SCH (06:40)
[2016-10-23] MEDS: ENOXAPARIN SODIUM 40 MG/0.4 ML SYRINGE SUBCUT SCH (09:02)
--- NOTE | 2016-10-23 13:06 | PDOC(PROG) ---
Subjective Post Op Day: 4 Pain Management: PO Brewster Catheter: No Flatus: No Diet: full liqui Ambulating: Yes Date and Time of Service: 10/23/2016 1 PM Interval History: Overall doing well. No complaints. He is comfortable. Pain is well controlled. He is ambulating frequently. Still no flatus or bowel movement. He is tolerating a full liquid diet. No nausea. He does feel slightly bloated. Feels like he will pass gas at any time. Objective : Data - Labs CBC and BMP: 10/23/16 06:00 10/23/16 06:00 Labs - Last 24 Hours: Laboratory Results 10/23/16 Range/Units 06:00 WBC 5.77 (4.8-10.8) 10^3/uL RBC 4.77 (4.70-6.10) 10^6/uL Hgb 13.1 L (14.0-18.0) g/dL Hct 42.0 (42.0-52.0) % MCV 88.1 (80-90) FL MCH 27.5 (27-31) PG MCHC 31.2 L (33-37) g/dL RDW Std Deviation 45.1 (39-50) fL RDW Coeff of Angelia 14.1 (11.5-14.5) % Plt Count 172 (140-350) 10*3/uL MPV 10.4 (7.4-12.2) FL Immature Gran % (Auto) 0.2 (0-5) % Neut % (Auto) 71.3 (50-80) % Lymph % (Auto) 16.5 (10-50) % [place] % (Auto) 9.4 (5-15) % Eos % (Auto) 2.3 (0-8) % Baso % (Auto) 0.3 (0-1) % Immature Gran # (Auto) 0.01 10*3/UL Neut # (Auto) 4.12 10*3/UL Lymph # (Auto) 0.95 10*3/uL [place] # (Auto) 0.54 (0.3-0.8) 10*3/UL Eos # (Auto) 0.13 10*3/UL Baso # (Auto) 0.02 10*3/UL WBC Morphology Comment Normal morphology (NORM) Plt Morphology Comment Normal morphology (NORM) RBC Morph Comment Normal morphology (NORM) Sodium 138 (135-145) meq/L Potassium 4.0 (3.8-5.2) meq/L Chloride 101 (98-112) meq/L Carbon Dioxide 29 (23-33) meq/L Anion Gap 8 (5-20) BUN 15 (7-22) mg/dL Creatinine 0.9 (0.70-1.50) mg/dL Estimated GFR (>60 ml/min/1.73m(2)) BUN/Creatinine Ratio 16.66 (6-20) Glucose 93 (78-110) mg/dL Calculated Osmolality 286.0 (267-292) mOsm/kg Calcium 8.5 L (8.7-10.7) mg/dL Total Bilirubin 0.7 (0.3-1.2) mg/dL AST 31 (21-57) IU/L ALT 30 (21-72) IU/L Alkaline Phosphatase 63 (38-126) IU/L Total Protein 5.8 L (6.1-8.0) g/dL Albumin 3.3 L (3.5-4.8) g/dL Globulin 2.5 (2.50-4.10) g/dL Albumin/Globulin Ratio 1.30 (1.3-2.0) mg/g - Imaging Imaging Details: Flat and upright abdomen x-rays ordered for this morning. Anastomotic device in place. There is gas throughout the proximal colon. Small amount of gas past the device. Some mildly dilated small bowel. No free air. Consistent with mild ileus. - Vital Signs Vital Signs and I&O: Vital Signs - Last Taken Temperature 97 F 10/23/16 11:01 Pulse Rate 64 10/23/16 11:01 Respiratory Rate 17 10/23/16 11:01 Blood Pressure 116/89 10/23/16 11:01 Pulse Ox 93 10/23/16 11:01 Intake and Output (24hr x 4 totals) 10/21/16 10/22/16 10/23/16 10/24/16 05:59 05:59 05:59 05:59 Intake Total 3109 2929 1360 790 Output Total 1375 822 775 2992 Balance 1734 2432 660 260 Objective : Exam - General General Appearance: No Acute Distress, Cooperative - Respiratory Respiratory Exam: Clear to Auscultation - Bilaterally, Breathing Non Labored - Cardiovascular Cardiovascular Exam: RRR, No Murmur - GI/Abdominal GI/Abdominal Exam: Soft, Diminished Bowel Sounds Additional GI/Abdominal Exam Details: Abdomen is slightly distended but soft. Good bowel tones. No peritoneal signs. Incision still looks a little pink below the umbilicus. I took out 2 sol below his umbilicus and probed the wound with a Q-tip. No pus. Wound was redressed. The remainder of the incision looks fine. - Neurological Neurological Exam: Alert, Oriented x 3 - Psychiatric Psychiatric Exam: Normal Affect, Normal Mood Assessment and Plan - Patient Problems (1) Cancer of sigmoid colon Current Visit: Yes Status: Acute Priority: High Comment: Status post sigmoid colectomy. (2) Status post partial resection of colon Current Visit: Yes Status: Acute Priority: High Diagnosis Date: 10/19/16 Comment: Stable. Slow return of GI function. No wound infection. X-ray okay but consistent with a mild ileus. Start Reglan. Continue postoperative care. Gentle diuresis for positive I and O's and weight gain.
--- NOTE | 2016-10-23 13:22 | DI ---
HISTORY: Postoperative abdominal distention. COMPARISON: 10/19/2016. TECHNIQUE: Abdominal series, 4 postoperative images. FINDINGS: Median cutaneous staple line evident. There is a routine density overlying the left hemip zenobia, as seen on prior study, of uncertain etiology. No intraperitoneal free gas identified. Air d istends the colon. A few dilated small bowel loops are noted in the epigastric region with air fluid levels. Some air is noted in the colon with paucity of air distally. Limited views of the lung bases are clear. No acute or destructive bony process identified. IMPRESSION: 1. Possible small bowel obstruction versus focal post operative ileus. Recommend continued clinical f ollow up, surgical evaluation and correlation with surgical history. 2. Nonspecific round density overlying left hemipelvis. Correlate with surgical history.
[2016-10-23] MEDS ORDERED: FUROSEMIDE 20 MG TABLET PO ONE (13:23)
[2016-10-23] MEDS: Metoclopramide Inj 10 MG/2 ML VIAL IVP SCH ×2 (14:34→18:41)
[2016-10-23] MEDS: NORMAL SALINE 10 ML SYRINGE FLUSH IVP PRN ×2 (14:34→18:42)
[2016-10-23] MEDS: DOCUSATE 100 MG CAPSULE PO SCH (20:38)
[2016-10-24] MEDS: NORMAL SALINE 10 ML SYRINGE FLUSH IVP PRN ×4 (00:43→19:30)
[2016-10-24] MEDS: Metoclopramide Inj 10 MG/2 ML VIAL IVP SCH ×4 (00:43→19:29)
[2016-10-24] MEDS: PANTOPRAZOLE 40 MG TABLET PO SCH (06:37)
[2016-10-24] MEDS: ENOXAPARIN SODIUM 40 MG/0.4 ML SYRINGE SUBCUT SCH (07:59)
[2016-10-24] MEDS: DOCUSATE 100 MG CAPSULE PO SCH ×2 (07:59→20:35)
--- NOTE | 2016-10-24 10:15 | PDOC(PROG) ---
Subjective Post Op Day: 5 Pain Management: PO Brewster Catheter: No Flatus: Yes Diet: full liqui Ambulating: Yes Date and Time of Service: 10/24/2016. 9 AM. Interval History: Overall better. Did pass a fair amount of gas. Had a small amount of stool. Doesn't feel as bloated. Voided a lot after the dose of Lasix. Ambulating. No nausea or vomiting. Incisional pain only. Objective : Data - Labs CBC and BMP: 10/23/16 06:00 10/23/16 06:00 - Vital Signs Vital Signs and I&O: Vital Signs - Last Taken Temperature 97.6 F 10/24/16 07:56 Pulse Rate 67 10/24/16 07:56 Respiratory Rate 20 10/24/16 07:56 Blood Pressure 128/75 10/24/16 07:56 Pulse Ox 90 10/24/16 07:56 Intake and Output (24hr x 4 totals) 10/22/16 10/23/16 10/24/16 10/25/16 05:59 05:59 05:59 05:59 Intake Total 2929 1360 3070 Output Total 126 198 2139 375 Balance 9 576 -689 -375 Objective : Exam - General General Appearance: No Acute Distress, Cooperative - Respiratory Respiratory Exam: Clear to Auscultation - Bilaterally, Breathing Non Labored - Cardiovascular Cardiovascular Exam: RRR, No Murmur - GI/Abdominal GI/Abdominal Exam: Non Distended, Soft Additional GI/Abdominal Exam Details: Incision looks okay. Erythema decreased. Dressing changed. Incisional tenderness only. Still abnormal bowel tones. - Neurological Neurological Exam: Alert, Oriented x 3 - Psychiatric Psychiatric Exam: Normal Affect, Normal Mood Assessment and Plan - Patient Problems (1) Cancer of sigmoid colon Current Visit: Yes Status: Acute Priority: High Comment: Status post colectomy. (2) Status post partial resection of colon Current Visit: Yes Status: Acute Priority: High Diagnosis Date: 10/19/16 Comment: Stable postop. Mild ileus seems to be resolving. We will increase to a low-residue diet and plan home in the morning if he tolerates that diet.
[2016-10-25] MEDS: Metoclopramide Inj 10 MG/2 ML VIAL IVP SCH ×2 (01:31→07:40)
[2016-10-25] MEDS: NORMAL SALINE 10 ML SYRINGE FLUSH IVP PRN (01:31)
[2016-10-25] MEDS: PANTOPRAZOLE 40 MG TABLET PO SCH (07:40)
[2016-10-25] MEDS: ENOXAPARIN SODIUM 40 MG/0.4 ML SYRINGE SUBCUT SCH (09:13)
[2016-10-25] MEDS: DOCUSATE 100 MG CAPSULE PO SCH (09:13)
[2016-10-25 12:16] VITALS: RESP 18; TEMP 97.6
--- NOTE | 2016-10-25 13:11 | DCSUMMARY ---
Discharge Summary Admit Date: 10/19/16 Discharge Date: 10/25/16 Admitting Diagnosis: sigmoid colon cancer. Discharge Diagnosis: Sigmoid colectomy and liver biopsy. Primary Surgery and Date: 10/19/2016 left colectomy with primary anastomosis and liver biopsy. Hospital Course: Patient underwent hemicolectomy on the . His postoperative course has been unremarkable. I did have a mild ileus but that has resolved. He is tolerating a regular diet. He is passing gas. He is having bowel movements. He is fully ambulatory. His pain is well controlled. He is ready to be discharged home for outpatient follow-up. Exam - Vitals Vital Signs: Vital Signs Temperature 97.6 F Temperature Source Temporal Artery Scan Pulse Rate [Apical] 78 Pulse Rate [Pulse Oximeter 55 Left] Pulse Rate 50 Respiratory Rate [abdomen] 18 Respiratory Rate 18 Blood Pressure [Right Arm] 131/76 Blood Pressure 123/87 Pulse Ox 93 Oxygen Flow Rate [abdomen] 1 Oxygen Flow Rate 1 Oxygen Delivery Method Room Air Height 5 ft 10 in Weight 100.335 kg - General General Appearance: POSITIVE: No Acute Distress, Cooperative - Respiratory Respiratory Exam: POSITIVE: Clear to Auscultation - Bilaterally, Breathing Non Labored - Cardiovascular Cardiovascular Exam: POSITIVE: RRR, No Murmur - GI/Abdominal GI/Abdominal Exam: POSITIVE: Normal Bowel Sounds, Non Distended, Soft Additional GI/Abdominal Exam Details: Incision looks good. No signs of infection. Incisional tenderness only. - Neurological Neurological Exam: POSITIVE: Alert, Oriented x 3 - Psychiatric Psychiatric Exam: POSITIVE: Normal Affect, Normal Mood Data Procedures: 10/19/2016 left hemicolectomy with liver biopsy. Patient Problems - Patient Problem List (1) Cancer of sigmoid colon Current Visit: Yes Status: Acute Priority: High Comment: status post resection. 4 positive lymph nodes and liver metastases. (2) Status post partial resection of colon Current Visit: Yes Status: Acute Diagnosis Date: 10/19/16 Priority: High Comment: Stable postop. Bowel function has returned. Ready to be discharged home for outpatient follow-up.
== END 2016-10-25 13:58 | disposition home or self-care (01) | DRG 330 ==
LOC: OPS 06:21 → MED/SURG 11:13
PROVIDERS: ADMIT Surgery; ATTEND Surgery
PROC: 0FB20ZX Excision of Left Lobe Liver, Open Approach, Diagnostic (ICD-10-PCS; 2016-10-19)
PROC: 0DBN0ZZ Excision of Sigmoid Colon, Open Approach (ICD-10-PCS; principal; 2016-10-19 08:00)
DX: C18.7 Malignant neoplasm of sigmoid colon (principal); C78.7 Secondary malignant neoplasm of liver and intrahepatic bile duct; K91.3 Postprocedural intestinal obstruction
CPT/HCPCS: 36415; 74000; 74020; 80048; 80053; 85025; 94150; 94761; A4216; J1170; J1335; J1650; J2250; J2710; J2765; J3010; J3490; J7050; J7120

== ENCOUNTER → 2016-10-31 | Outpatient (CLI) | payer OTHER | LOC: MMPC 11:11 | PROVIDERS: ATTEND Surgery | DX: C18.7 Malignant neoplasm of sigmoid colon (principal); C78.7 Secondary malignant neoplasm of liver and intrahepatic bile duct ==

== ENCOUNTER → 2016-11-08 | Outpatient (CLI) | payer OTHER | LOC: MMPC 11:11 | PROVIDERS: ATTEND Surgery | DX: C18.6 Malignant neoplasm of descending colon (principal); Z90.49 Acquired absence of other specified parts of digestive tract ==

== ENCOUNTER → 2016-11-22 | Outpatient (CLI) | payer OTHER | LOC: MMPC 11:11 | PROVIDERS: ATTEND Surgery | DX: C18.7 Malignant neoplasm of sigmoid colon (principal) | CPT/HCPCS: 99212; G0463 ==

== ENCOUNTER 2016-11-23 06:58 | Day surgery (SDC) | payer OTHER ==
[~2016-11-23 06:58] MED LIST changes: -ERTAPENEM 1 GM VIAL ONE; -Sodium Chloride 0.9% 100 ML IV ONE; +ceFAZolin Inj 2gm (Premix) 50 ML IV ONE
[2016-11-23] MEDS ORDERED: fentaNYL Inj 100 MCG/2 ML VIAL ONE (07:04)
[2016-11-23] MEDS ORDERED: MIDAZOLAM 5 MG/1 ML ONE (07:04)
[2016-11-23] MEDS ORDERED: HEPARIN 500 UNIT/5 ML SYRINGE FOR CENTRAL LINE IVP ONE (07:18)
[2016-11-23] MEDS ORDERED: LIDOCAINE HCL 1%/EPI 1:100,000 - 20 ML VIAL ONE (07:18)
[2016-11-23] MEDS ORDERED: SODIUM BICARBONATE 8.4% - 50 ML VIAL ONE (07:18)
[2016-11-23] MEDS ORDERED: Sodium Chloride 0.9% 100 ML IV ONE (07:24)
--- NOTE | 2016-11-23 08:59 | GEN.OPNOTE ---
Operative Note Surgery Date: 11/23/16 Preoperative Diagnosis: Stage IV colon cancer. Need for long-term venous access. Postoperative Diagnosis: Same. Procedure: Left subclavian PowerPort placement. Surgeon: Adrian Matos MD Anesthesia Provider: Mike Baca CRNA Anesthesia Type: Local (1% Xylocaine with epinephrine and sodium bicarbonate per Adrian Matos M.D.), MAC Estimated Blood Loss (mL): 3 Fluids: 700 mL of crystalloid. 2 g of IV Ancef at the start of the procedure. Pathology: No specimens. Indications: Need for long-term venous access for chemotherapy. Findings: Fluoroscopy shows a smooth course of the catheter through the subclavian vein and into the superior vena cava. Completion chest x-ray shows the catheter tip in the superior vena cava. No evidence of a pneumothorax. Complications: None. Operative Summary: The patient was taken to the operating suite and placed on the operating table in the supine position. Following the induction of adequate IV sedation the operative site was chosen and infiltrated with 1% Xylocaine with epinephrine and bicarbonate. I chose the left subclavian region. A Cook needle was used to tunnel from the port site up to the subclavian vein. The needle was inserted into the subclavian vein. A guidewire was passed through the vein into the superior vena cava. Its position was confirmed with fluoroscopy. An incision was made on the chest wall. A subcutaneous pocket was developed. A power port was chosen. The catheter was cut to 21 cm. The device was put together in the normal fashion and flushed with heparinized saline. A peel- away sheath and dilator were passed over the guidewire. The guidewire and dilator were removed. The catheter was passed through the peel-away sheath into the superior vena cava. The peel-away sheath was removed. The port was placed into the chest wall pocket. Fluoroscopy confirmed a smooth course of the catheter throughout. The tip was in the superior vena cava. There was no evidence of a pneumothorax. The device was flushed initially with 10 units of heparin per cc flush. Final flush was with 10 mL of 100 units of heparin per cc flush. The deep dermis was closed with inverted interrupted 3-0 Vicryls. The skin was closed with running subcuticular 4-0 Monocryl. This was followed by Mastisol, Steri-Strips, and an OpSite dressing. A sandbag was placed on the operative site. The patient tolerated the procedure well without complication. She was taken to the outpatient surgery in stable condition. All counts were correct. Final chest x-ray shows the catheter tip in the superior vena cava. There is no evidence of a pneumothorax. The catheter may be used for its intended purpose.
[2016-11-23] MEDS ORDERED: HYDROcodone-APAP 5 MG -325 MG TABLET PO PRN (09:03)
--- NOTE | 2016-11-23 09:08 | DI ---
C-ARM FLUOROSCOPY OF THE CHEST, 11/23/2016 8:00 AM : Clinical History: Colon cancer. Insertion of Mediport catheter. Previous Exam: None at this facility. A single spot film is submitted. The shows the Mediport catheter tip in the superior vena cava. The i nsertion is from the left subclavian route. Reading: The Mediport catheter is in the proximal superior vena cava.
--- NOTE | 2016-11-23 09:08 | DI ---
AP CHEST X-RAY, 11/23/2016 9:00 AM : Clinical History: Mediport insertion. The patient has colon cancer and requires chemotherapy. Previous Exam: None at this facility. There is no acute soft tissue or bony abnormality. Heart size is normal. The Mediport was inserted fr om the left subclavian route and the catheter tip is at the junction of the IVC and left brachiocepha lic vein. There is no pneumothorax. No acute infiltrate or effusion is present. Mediastinal structure s are normal. There are no pulmonary nodules. Reading: Normal chest x-ray. There is no pneumothorax. The tip of the Mediport catheter is at the junction of the superior vena cava and left brachiocephalic vein.
[2016-11-23 11:26] VITALS: RESP 16; TEMP 97.1
== END 2016-11-23 09:43 | disposition home or self-care (01) ==
LOC: SDSC 06:58
PROVIDERS: ATTEND Surgery
DX: C18.7 Malignant neoplasm of sigmoid colon (principal)
CPT/HCPCS: 36561; 71010; 76000; J0690; J2704; J3010; J2250; J7050; J7120

== ENCOUNTER 2016-11-29 02:26 | Emergency (ER) | payer OTHER ==
[2016-11-29] MEDS ORDERED: NORMAL SALINE 10 ML SYRINGE FLUSH IVP PRN (03:00)
[2016-11-29] MEDS ORDERED: ASPIRIN 81 MG (BABY) CHEWABLE TABLET PO ONE (03:00)
--- NOTE | 2016-11-29 03:02 | EKG ---
[address] [address] Measurements Intervals [place] Rate: 59 P: 51 ND: 176 QRS: 75 QRSD: 106 T: 60 QT: 408 QTc: 407 Interpretive Statements SINUS BRADYCARDIA No previous ECG available for comparison Electronically Signed On 11-29-16 08:44:28 MDT by David Valdes [email or web address]
[2016-11-29 03:07] LABS: BASOPHILS # (AUTO) 0.01 10*3/UL; BASOPHILS % (AUTO) 0.1 % (0-1); EOSINOPHILS # (AUTO) 0 10*3/UL; EOSINOPHILS % (AUTO) 0 % (0-8); HEMATOCRIT 45.3 % (42.0-52.0); HEMOGLOBIN 14.7 g/dL (14.0-18.0); LYMPHOCYTES # (AUTO) 1.02 10*3/uL; MEAN CORPUSCULAR HEMOGLOBIN 27.2 PG (27-31); MEAN CORPUSCULAR HGB CONC 32.5 g/dL (33-37); MEAN CORPUSCULAR VOLUME 83.9 FL (80-90); MEAN PLATELET VOLUME 10.1 FL (7.4-12.2); MONOCYTES # (AUTO) 0.17 10*3/UL (0.3-0.8); MONOCYTES % (AUTO) 1.3 % (5-15); NEUTROPHILS % (AUTO) 90.7 % (50-80)
[2016-11-29 03:08] LABS: PLATELET MORPHOLOGY COMMENT NORMAL MORPHOLOGY (NORM); RBC MORPHOLOGY COMMENT NORMAL MORPHOLOGY (NORM); WBC MORPHOLOGY COMMENT NORMAL MORPHOLOGY (NORM)
[2016-11-29 03:10] VITALS: RESP 20; TEMP 97.5
[2016-11-29 03:14] LABS: BUN/CREATININE RATIO 21.11 (6-20); CALCIUM 9.4 mg/dL (8.7-10.7); SERUM ALBUMIN 4.1 g/dL (3.5-4.8)
[2016-11-29 03:26] LABS: TROPONIN I < 0.012 ng/mL (< 0.040)
--- NOTE | 2016-11-29 08:18 | DI ---
XR CXR 2VW PA/LAT,11/29/2016 3:01 AM: Clinical History: Chest pain Previous Exam: November 23, 2016 Findings: PA and lateral views of the chest are obtained, and demonstrate clear lungs. The cardiomediastinum is unremarkable. There is a chest port noted within the left anterior chest wall. Skeletal structures are unremarkable. Impression: No acute disease.
--- NOTE | 2016-11-29 08:56 | PDOC ---
Chest Pain HPI - General Chief Complaint: Chest Pain Stated Complaint: CHEST PAIN Date Seen by Provider: 11/29/16 Time Seen by Provider: 02:47 Source: Patient, Spouse Exam Limitations: POSITIVE: No limitations Treatment Prior to Arrival: REPORTS: None Nurse's Notes Reviewed & Considered: Yes - History of Present Illness Initial Comments: The patient is a 71-year-old male. He presents to the emergency room ambulatory with his . He states that around 10 PM, approximately 4-1/2 hours ROOFER he developed a fleeting episode of pain in the subxiphoid area. He states the pain lasted one to 2 seconds. He's had several similar episodes since. On presentation to the emergency room he denies any chest discomfort. Patient had a Port-A-Cath placed on the left recently and today he was started on fluorouracil infusion through the Port-A-Cath for colon cancer. He recently had a resection of his colon cancer on September. Patient has not had any associated dyspnea. Patient states he does have a history of passing a kidney stone. His first round of chemotherapy with fluorouracil began today. Body Location Affected: REPORTS: Chest (As above) Timing: REPORTS: Abrupt, Intermittent, Improved, Other (Pain localizes the area of his sharp pain to the subxiphoid area. He states he's had 3 or 4 episodes since 10 PM, each of which last only one or 2 seconds.) Duration: 4-6 hours Severity: Mild Gone now, lasted (minutes):: 0 Intermittent Episodes Lasting (minutes): 0 Context: REPORTS: Sleep Quality: REPORTS: Sharpness Radiation: REPORTS: None Associated Symptoms: DENIES: Nausea, Vomiting, Diaphoresis, Shortness of Breath , Hurts to Breathe, Palpitations, Productive Cough (blood), Productive Cough ( sputum), Weakness, Dizziness Modifying Factors: improves with: None Reported Similar Symptoms Previously: No Recently seen/treated/hospitalized: Yes (as above) Any Prior Injuries Related to Current Complaint?: No - Patient Home Medications Home Medications: Home Medications Fluorouracil [Adrucil] 5 gm IV WEEKLY 11/29/16 - Patient Allergies Allergies/Adverse Reactions: Allergies Allergy/AdvReac Type Severity Reaction Status Date / Time No Known Allergies Allergy Verified 11/29/16 02:51 Past Medical History - heen HEENT History: Dentures/Partials Cardiovascular History: Denies History Respiratory History: Denies History Gastrointestinal History: Other (please comment) Additional Gastrointestinal History: gastric ulcer. rectal bleeding. colon cancer with mets to liver. colon cancer removal with resection Genitourinary History: Kidney Stones Endocrine History: Denies History Musculoskeletal History: Denies History Prosthesis or Implant: No Neurological History: Denies History Blood Disorders: Denies History Psychiatric History: Denies History History of Sexually Transmitted Diseases: No Cancer History: Colon Cancer Treatment / Date(s) of Treatment: DIAGNOSED ON 10/10/16 WITH COLONOSCOPY In Past Year Been Physically Harmed or Verbally Threatened: No History of MDRO: No History of Other Communicable Diseases: No Tobacco Use: Never Smoker Alcohol Use: None Substance Use Type: None Previous Surgical History: Yes Type / Date of Surgery: WEDGE BIOPSY OF LIVER. PARTIAL COLECTOMY WITH PRIMARY ANASTAMOSIS. COLONOSCOPY. vasectomy. KIDNEY STONE EXTRACTION Anesthesia Reactions: No Malignant Hyperthermia: No Significant Family History: Cancer Past Medical History Reviewed: Reviewed - No Changes ROS - Limitations ROS Limitations: No Limitations Constitution: REPORTS: Denies Symptoms Cardiovascular: REPORTS: Chest Pain Respiratory: REPORTS: Denies Resp Symptoms Neurological: REPORTS: Denies Neuro Symptoms Gastrointestinal: REPORTS: Denies GI Symptoms Endocrine: REPORTS: Denies Symptoms Musculoskeletal: REPORTS: Denies MS Symptoms Genitourinary: REPORTS: Denies Symptoms Eyes: REPORTS: Denies Symptoms ENT: REPORTS: Denies Symptoms Skin: REPORTS: Denies Skin Symptoms Lympathic: REPORTS: Denies Lympathic Symptoms Immunologic: POSITIVE: Denies Symptoms Psychiatric: POSITIVE: Denies Psych Symptoms Chest Pain PE - General Appearance General Appearance: REPORTS: Alert, Cooperative, No Acute Distress, No Evidence of Trauma - HEENT HEENT: POSITIVE: Head Inspection Nml, Eyes Inspection Nml, Ears Inspection Nml, Nose Inspection Nml, Oral/Dental Inspect. Nml, Pharynx Inspect. Nml, PERRL, EOMI - Neck Neck: REPORTS: Normal Inspection, No Carotid Bruit - Respiratory Respiratory: REPORTS: No Respiratory Distress, Breath Sounds Normal, Chest Non- Tender - Cardiovascular Cardiovascular: REPORTS: Regular Rate and Rhythm, Heart Sounds Normal, Equal Pulses, Strong Pulses, No Murmur, No Gallop, No Friction Rub, No JVD Peripheral Pulses: Radial (R): 2+, Radial (L): 2+ - Abdomen Abdomen: Soft: (All Quadrants), Normal Bowel Sounds: (All Quadrants), Denies Tenderness: (All Quadrants), No Splenomegaly: (All Quadrants), No Hepatomegaly: (All Quadrants), No Guarding: (All Quadrants), No Rebound: (All Quadrants), No Palpable Pulse: (All Quadrants), No Palpabale Mass: (All Quadrants), No Distention: (All Quadrants), No Rigidity: (All Quadrants) - Skin Skin: REPORTS: Intact, Normal For Race, Warm, Dry, No Rash - Extremities Extremity: Non-Tender: (All Extremities), Normal ROM: (All Extremities), Normal Inspection: (All Extremities) - Neurological / Psychological Neurological: POSITIVE: Oriented X3, digitizer Normal As Tested, Motor Normal, Sensation Normal, 5, 6 Images - Complete Complete: 1 - Area of described discomfort Chest Pain Progress - Results Reviewed by me Xrays/CTs/US Reviewed by me: Yes Discussed with Radiologist: Yes Radiology Findings: Chest x-ray shows Port-A-Cath on the left; lung huntley appear clean. CTA of chest shows no pulmonary emboli. Lab Results Reviewed: Yes Lab Results:: Laboratory Results 11/29/16 Range/Units 02:55 WBC 13.22 H (4.8-10.8) 10^3/uL RBC 5.40 (4.70-6.10) 10^6/uL Hgb 14.7 (14.0-18.0) g/dL Hct 45.3 (42.0-52.0) % MCV 83.9 (80-90) FL MCH 27.2 (27-31) PG MCHC 32.5 L (33-37) g/dL RDW Std Deviation 45.0 (39-50) fL RDW Coeff of Angelia 14.8 H (11.5-14.5) % Plt Count 216 (140-350) 10*3/uL MPV 10.1 (7.4-12.2) FL Immature Gran % (Auto) 0.2 (0-5) % Neut % (Auto) 90.7 H (50-80) % Lymph % (Auto) 7.7 L (10-50) % Davis % (Auto) 1.3 L (5-15) % Eos % (Auto) 0 (0-8) % Baso % (Auto) 0.1 (0-1) % Immature Gran # (Auto) 0.02 10*3/UL Neut # (Auto) 12.00 10*3/UL Lymph # (Auto) 1.02 10*3/uL Davis # (Auto) 0.17 L (0.3-0.8) 10*3/UL Eos # (Auto) 0 10*3/UL Baso # (Auto) 0.01 10*3/UL WBC Morphology Comment Normal morphology (NORM) Plt Morphology Comment Normal morphology (NORM) RBC Morph Comment Normal morphology (NORM) D-Dimer 1.14 H (0.00-0.59) mg/L Sodium 139 (135-145) meq/L Potassium 4.7 (3.8-5.2) meq/L Chloride 103 (98-112) meq/L Carbon Dioxide 24 (23-33) meq/L Anion Gap 12 (5-20) BUN 19 (7-22) mg/dL Creatinine 0.9 (0.70-1.50) mg/dL Estimated GFR (>60 ml/min/1.73m(2)) BUN/Creatinine Ratio 21.11 H (6-20) Glucose 174 H (78-110) mg/dL Calculated Osmolality 293.0 H (267-292) mOsm/kg Calcium 9.4 (8.7-10.7) mg/dL Total Bilirubin 0.5 (0.3-1.2) mg/dL AST 25 (21-57) IU/L ALT 23 (21-72) IU/L Alkaline Phosphatase 67 (38-126) IU/L CK-MB (CK-2) 1.10 (0.00-5.00) NG/ML Troponin I < 0.012 (< 0.040) ng/mL Total Protein 7.7 (6.1-8.0) g/dL Albumin 4.1 (3.5-4.8) g/dL Globulin 3.6 (2.50-4.10) g/dL Albumin/Globulin Ratio 1.10 L (1.3-2.0) mg/g EKG Interpreted/Reviewed By Me:: Yes (normal) EKG Interpretation:: POSITIVE: Normal Sinus Rhythm, Normal Rate, Normal Intervals, Normal [place], Normal QRS, Normal ST/T - Patient's Progress Pain Medication Addressed: POSITIVE: Not Applicable School/Work Release Addressed: POSITIVE: Not Applicable Re-Examine Time: 06:00 Re-Examine Comment: Patient remained asymptomatic throughout his stay in the emergency room Status: POSITIVE: Unchanged, Re-Examined Quality Measure Initiative: CP/AMI: POSITIVE: EKG, ASA - Consult Counseled: POSITIVE: Patient, Family, RE: Lab Results, RE: Radiology Results, RE : DX, RE: Need for F/U Patient Care Time - Estimated PCT Patient Care Time (In Minutes): 50 Vital Signs - Recent Vital Signs Vital Signs: Vital Signs (Last 8 hours) Temp Pulse Pulse Resp BP BP Pulse Ox 11/29/16 03:10 131/92 11/29/16 03:00 97.5 F 69 69 20 163/89 95 11/29/16 02:30 59 L - VS Reviewed Vital Signs Reviewed: Yes Discharge Clinical Impression: Chest discomfort Discharge Disposition: Discharged to Home Condition: Good Patient Instructions Given at Discharge: Noncardiac Chest Pain (ED) Additional Instructions: I am not completely sure why you're having your brief episodes of chest discomfort, I see no evidence of heart or lung pathology, including heart attacks or blood clots to the lungs. I suspect you're having chest wall discomfort. Continue your present treatment. Increase fluids. Follow-up with your primary care provider. Return here anytime if condition worsens in any way whatsoever. Follow Up With: CARY ZULETA [Primary Care Provider] - (Instructions as above. Follow- up with your oncologist and primary care provider. Return here anytime if condition worsens in any way.)
--- NOTE | 2016-11-29 16:47 | DI ---
CT CTA CHEST NONCORONARY W/WO,11/29/2016 3:49 AM: Clinical History: Chest pain and elevated d-dimer. Previous Exam: None at this facility. Findings: Multiple helically acquired CT images are obtained through the chest following a CT angiogram protoco l, and demonstrate normal pulmonary arteries without filling defect or truncation to suggest embolism . There is calcified granuloma within the right lung base. There is a chest port within the left anterior chest wall with the tip in good position. The thyroid is unremarkable. There is a fracture of the proximal right clavicle with some new bone formation. There is no evidence of pneumothorax. There is no effusion or infiltrate. Impression: 1. No evidence of pulmonary embolism. 2. Displaced fracture of the right proximal clavicle with some healing.
== END 2016-11-29 06:37 | disposition home or self-care (01) ==
LOC: ER 02:26
DX: R07.89 Other chest pain (principal); R79.89 Other specified abnormal findings of blood chemistry; Z90.49 Acquired absence of other specified parts of digestive tract
CPT/HCPCS: 71020; 71275; 80053; 82553; 84484; 85025; 85379; 93005; 93010; 99284

== ENCOUNTER → 2016-12-22 | Outpatient (CLI) | payer OTHER | LOC: MMPC 11:11 | PROVIDERS: ATTEND Internal Medicine | DX: Z85.038 Personal history of other malignant neoplasm of large intestine (principal); Z90.49 Acquired absence of other specified parts of digestive tract ==